=== PATIENT | female | born 1945 | race Caucasian/White ===

== ENCOUNTER → 2016-11-16 | Outpatient (CLI) | payer OTHER | LOC: BHFA 09:15 | PROVIDERS: ATTEND Internal Medicine | DX: I35.1 Nonrheumatic aortic (valve) insufficiency (principal); I34.0 Nonrheumatic mitral (valve) insufficiency; I36.1 Nonrheumatic tricuspid (valve) insufficiency; I25.10 Atherosclerotic heart disease of native coronary artery without angina pectoris ==

== ENCOUNTER → 2017-01-02 | Outpatient (CLI) | payer OTHER | LOC: FIMAGING 11:29 | DX: Z12.31 Encounter for screening mammogram for malignant neoplasm of breast (principal) | CPT/HCPCS: G0202 ==

== ENCOUNTER 2017-01-15 11:16 | Observation (INO) | payer OTHER ==
[2017-01-15] MEDS ORDERED: ACETAMINOPHEN 325 MG TAB PO PRN (14:01)
[2017-01-15] MEDS ORDERED: oxyCODONE IR 5 MG TAB PO PRN (14:01)
[2017-01-15] MEDS ORDERED: TEMAZEPAM 15 MG CAP PO PRN (14:01)
[2017-01-15] MEDS ORDERED: ONDANSETRON DISINTEGRATING 4 MG TAB PO PRN (14:01)
[2017-01-15] MEDS ORDERED: ONDANSETRON 4 MG/2 ML VIAL IVP PRN (14:01)
--- NOTE | 2017-01-15 14:22 | CPEKG ---
Heart Rate: 79 RR Interval: 759 P-R Interval: 204 QRSD Interval: 86 QT Interval: 372 QTC Interval: 427 P [place]: 40 QRS [place]: 55 T Wave [place]: 36 EKG Severity - BORDERLINE ECG - EKG Impression: SINUS RHYTHM EKG Impression: BORDERLINE R WAVE PROGRESSION, ANTERIOR LEADS Electronically Signed By: Lionel Stubbs 15-Jan-2017 20:47:08
[2017-01-15] MEDS ORDERED: NS 1,000 ML IV SCH (14:30)
--- NOTE | 2017-01-15 15:00 | GHP ---
[f rep st] HISTORY AND PHYSICAL DATE OF ADMISSION: 01/15/2017 CHIEF COMPLAINT: Fever. HISTORY OF PRESENT ILLNESS: This is a 71-year-old female, who has been seen by Dr. Hamilton over the past 2 days for a fever. She says that this started 6 days prior to presentation, associated with some left-sided flank pain. She has had intermittent fevers up to 102. She has been treating them with Tylenol. She then saw Dr. Hamilton yesterday, who ordered tests, including cell counts, which shows a white count of 10.7, with 84% neutrophils. Electrolytes, liver function tests, which were unremarkable. Urinalysis, which shows 50 to 182 whites, 3+ leuk esterase, as well as urine culture, growing a GNR non-lactose rock worker, as well as a GNR lactose rock worker. The non-lactose rock worker is greater than 100,000 CFUs per mL. She has no dysuria, no frequency. She occasionally has foul smelling urine, which she has not noted in the last week. She has a mild cough, which is slightly productive. She notes one episode of emesis, no headaches, no rash, no arthralgias. She has been placed on prednisone 2 weeks ago for some hearing loss, after seeing an ENT. She had one episode like this in 2013, when she was in [place]. She had empirically taken Cipro before having any cultures drawn and nothing was ever cultured. She does have a history of urinary tract infections, however, this does not feel like her previous. She grew e. coli that was resistant to Levaquin in 2013. PAST MEDICAL/SURGICAL HISTORY: 1. Hyperlipidemia. 2. Valvular heart disease, including aortic insufficiency, mitral and tricuspid regurg, followed by Dr. Jiménez. 3. Hypothyroid. 4. History of a TIA. MEDICATIONS: Please see medication reconciliation. ALLERGIES: None. FAMILY HISTORY: Her mother had multiple myeloma. Father had a stroke. SOCIAL HISTORY: She occasionally drinks wine. She does not smoke. She is and lives at home with her independently. REVIEW OF SYSTEMS: A 10-point review of systems is conducted and is negative, except per HPI. PHYSICAL EXAM: VITAL SIGNS: Currently afebrile, blood pressure 124/61, heart rate 86, saturating at 93% on room air. Breathing comfortably. GENERAL: The patient is a pleasant, tired appearing female, who is lying in bed. HEENT: Shows her to be normocephalic, atraumatic. She has no meningismus. CARDIOVASCULAR: Shows regular rate and rhythm. No murmurs, rubs, or gallops while she is lying on her back. SKIN: Shows no rash. : No G[place]. NEUROLOGIC: Shows her to be alert and oriented x3. She is moving all extremities. PSYCHIATRIC: Shows normal mood and affect. LABS: Labs from yesterday are reviewed as per HPI. DATA: 1. I reviewed her chart. 2. I personally viewed and interpreted her EKG, this shows sinus rhythm. She has slow R-wave progression. She has a Q-wave in lead 3. Otherwise, this is a nonischemic EKG. 3. I have ordered a chest x-ray. IMPRESSION AND PLAN: A 71-year-old female, who presents with: 1. SIRS with fever and leukocytosis: I suspect that this is likely due to urinary tract infection given positive culture and UA, though she does not have any real localizing symptoms. She had a previous e. coli UTI resistant to Levaquin. Unclear if she has had improvement on empiric Levaquin. I will put her on Rocephin for now and follow her urine culture. I have ordered blood cultures to be drawn again if she has a fever. I have ordered a chest x-ray, given her cough. If she does not improve on empiric Rocephin, we will broaden considerations, to include other infections, inflammatory disorders, or malignancies. At this point, I have no evidence for meningitis or endocarditis. I will also order an ESR and CRP. 2. Hypothyroid: Check TSH and continue Synthroid. 3. Valvular heart disease: Would consider endocarditis if her blood culture is positive. 4. History of a transient ischemic attack: Aspirin and statin. 5. Code status is do not resuscitate. 6. Venous thromboembolism risk is moderate, however, she is admitted under observation. If she stays for more than one midnight would institute pharmacologic prophylaxis. /[id number]/MODL MTDD
[2017-01-15 15:13] LABS: % IMMATURE GRANULYOCYTES 0.4 % (0.0-1.1); ABSOLUTE IMMATURE GRANULOCYTES 0.05 10^3/uL (0.00-0.10); ADD DIFF? NO; ADD MORPH? NO; ADD SCAN? NO; ATYPICAL LYMPHOCYTE FLAG 80 (0-99); FRAGMENT RBC FLAG 0 (0-99); HEMATOCRIT 37.6 % (38.0-47.0); HEMOGLOBIN 12.9 g/dL (12.6-16.3); LEFT SHIFT FLG 10 (0-99); LIPEMIA HEMOLYSIS FLAG 90 (0-99); MEAN CELL HEMOGLOBIN 30.9 pg (27.9-34.1); MEAN CELL HEMOGLOBIN CONCENTR. 34.3 g/dL (32.4-36.7); MEAN CELL VOLUME 90.2 fL (81.5-99.8); MEAN PLATELET VOLUME 10.7 fL (8.7-11.7); PLATELET CLUMPS FLAG 10 (0-99); PLATELET COUNT 174 10^3/uL (150-400); RED BLOOD CELL COUNT 4.17 10^6/uL (4.18-5.33); RED CELL DISTRIBUTION WIDTH 14.3 % (11.5-15.2)
[2017-01-15 15:19] LABS: INR 1.12 (0.83-1.16); PROTIME(PATIENT) 14.3 SEC (12.0-15.0)
[2017-01-15 15:35] LABS: ALANINE AMINOTRANSFERASE 36 IU/L (9-52); ALBUMIN 3.2 g/dL (3.5-5.0); ALKALINE PHOSPHATASE 109 IU/L (38-126); ANION GAP 8 mEq/L (8-16); ASPARTATE AMINOTRANSFERASE 27 IU/L (14-46); BILIRUBIN,TOTAL 0.7 mg/dL (0.1-1.4); CALCIUM 8.7 mg/dL (8.5-10.4); CARBON DIOXIDE 25 mEq/l (22-31); CHLORIDE 102 mEq/L (97-110); CREATININE 0.7 mg/dL (0.6-1.0); GLOMERULAR FILTRATION RATE > 60; GLUCOSE 88 mg/dL (70-100); POTASSIUM 4.3 mEq/L (3.5-5.2); SODIUM 135 mEq/L (134-144)
[2017-01-15 15:52] LABS: SEDIMENTATION RATE 41 MM/HR (0-30)
[2017-01-15 16:02] LABS: C-REACTIVE PROTEIN 327.4 mg/L (<10.0)
[2017-01-15] MEDS ORDERED: ASPIRIN 81 MG CHEWABLE TAB PO SCH (21:00)
[2017-01-15] MEDS ORDERED: ATORVASTATIN CALCIUM 20 MG TAB PO SCH (21:00)
[2017-01-16 02:50] VITALS: O2SAT 95
[2017-01-16 05:38] LABS: % IMMATURE GRANULYOCYTES 0.3 % (0.0-1.1); ABSOLUTE IMMATURE GRANULOCYTES 0.03 10^3/uL (0.00-0.10); ADD DIFF? NO; ADD MORPH? NO; ADD SCAN? YES; FRAGMENT RBC FLAG 0 (0-99); HEMATOCRIT 36.1 % (38.0-47.0); HEMOGLOBIN 12.2 g/dL (12.6-16.3); LEFT SHIFT FLG 10 (0-99); LIPEMIA HEMOLYSIS FLAG 90 (0-99); MEAN CELL HEMOGLOBIN CONCENTR. 33.8 g/dL (32.4-36.7); MEAN CELL VOLUME 91.6 fL (81.5-99.8); MEAN PLATELET VOLUME 10.9 fL (8.7-11.7); PLATELET CLUMPS FLAG 0 (0-99); PLATELET COUNT 171 10^3/uL (150-400); RED BLOOD CELL COUNT 3.94 10^6/uL (4.18-5.33); RED CELL DISTRIBUTION WIDTH 14.4 % (11.5-15.2)
[2017-01-16 05:52] LABS: ATYPICAL LYMPHOCYTE FLAG 180 (0-99)
[2017-01-16 05:56] LABS: ANION GAP 7 mEq/L (8-16); CALCIUM 8.4 mg/dL (8.5-10.4); CARBON DIOXIDE 23 mEq/l (22-31); CHLORIDE 109 mEq/L (97-110); CREATININE 0.6 mg/dL (0.6-1.0); GLOMERULAR FILTRATION RATE > 60; GLUCOSE 87 mg/dL (70-100); POTASSIUM 4.3 mEq/L (3.5-5.2); SODIUM 139 mEq/L (134-144)
[2017-01-16] MEDS ORDERED: LEVOTHYROXINE 50 MCG TAB PO SCH (06:00)
[2017-01-16 06:21] LABS: SCAN NEGATIVE
[2017-01-16 07:46] VITALS: RESP 16
[2017-01-16 11:12] VITALS: BP 105/60; PULSE 77; TEMP 98.4
--- NOTE | 2017-01-16 14:02 | GDS ---
[f rep st] DISCHARGE SUMMARY DISCHARGE DIAGNOSES: 1. Urinary tract infection. 2. Systemic inflammatory response syndrome. 3. Hypothyroidism. 4. History of valvular heart disease. HISTORY: This is a 71-year-old female who presented with fever. She was diagnosed with urinary tra ct infection at her PCP's office and was started on Levaquin. She, however, continued to have fever and came to the emergency department. HOSPITAL COURSE: The patient was admitted and started on ceftriaxone. A urine culture from PCP's o ice did grow out E coli that was resistant to Levaquin among several other antibiotics. It is sen sitive to cephalosporins. She is doing quite well, is feeling a lot better, and wants to go home. Will discharge her on 7 more days of Ceftin. FOLLOWUP INSTRUCTIONS: She is instructed to follow up with her primary care doctor as needed. /[id number]/MODL
== END 2017-01-16 13:28 | disposition home or self-care (01) ==
LOC: F3E 12:53
PROVIDERS: ADMIT Internal Medicine; ATTEND Internal Medicine
DX: N39.0 Urinary tract infection, site not specified (principal); E03.9 Hypothyroidism, unspecified; I08.0 Rheumatic disorders of both mitral and aortic valves; Z86.73 Personal history of transient ischemic attack (TIA), and cerebral infarction without residual deficits
CPT/HCPCS: 71020; 93005; G0378; J0696

== ENCOUNTER → 2017-08-20 | Outpatient (CLI) | payer OTHER | LOC: BHFA 11:30 | PROVIDERS: ATTEND Internal Medicine Cardiovascular Disease | DX: R06.02 Shortness of breath (principal); I51.9 Heart disease, unspecified ==

== ENCOUNTER → 2018-01-06 | Outpatient (CLI) | payer OTHER | LOC: FIMAGING 10:02 | PROVIDERS: ATTEND Internal Medicine | DX: Z12.31 Encounter for screening mammogram for malignant neoplasm of breast (principal) ==

== ENCOUNTER → 2018-01-13 | Outpatient (CLI) | payer OTHER | LOC: BMCIMAGING 10:07 | PROVIDERS: ATTEND Internal Medicine Critical Care Medicine | DX: R06.02 Shortness of breath (principal); I27.20 Pulmonary hypertension, unspecified ==

== ENCOUNTER → 2018-11-04 | Outpatient (CLI) | payer OTHER | LOC: BMCIMAGING 10:33 | PROVIDERS: ATTEND Internal Medicine Rheumatology | DX: M19.041 Primary osteoarthritis, right hand (principal); M19.042 Primary osteoarthritis, left hand; M18.0 Bilateral primary osteoarthritis of first carpometacarpal joints ==

== ENCOUNTER → 2019-01-28 | Outpatient (CLI) | payer OTHER | LOC: BMCIMAGING 16:09 | PROVIDERS: ATTEND Internal Medicine Geriatric Medicine | DX: I51.7 Cardiomegaly (principal); Z87.01 Personal history of pneumonia (recurrent) ==

== ENCOUNTER → 2019-01-29 | Outpatient (CLI) | payer OTHER | LOC: BHFA 10:45 | PROVIDERS: ATTEND Internal Medicine Cardiovascular Disease | DX: I27.20 Pulmonary hypertension, unspecified (principal); I25.10 Atherosclerotic heart disease of native coronary artery without angina pectoris; I38 Endocarditis, valve unspecified ==

== ENCOUNTER 2019-01-31 00:32 | Observation (INO) | payer OTHER ==
[2019-01-31] MEDS ORDERED: NS 500 ML IV ONE ×2 (00:43→01:50)
--- NOTE | 2019-01-31 00:43 | EDPHY ---
H & P Stated Complaint: Chest pain an dback pain-hx valve disease Time Seen by Provider: 01/31/19 00:43 HPI/ROS: HPI CHIEF COMPLAINT: Left-sided scapula pain. HISTORY OF PRESENT ILLNESS: Patient is a 73-year-old female, she tells me she has a history of pulmonary hypertension, valvular heart disease, hyperlipidemia , presents emergency room left-sided posterior scapula pain this started around 9:00 p.m.. Happened at rest. She does not recall any injury. It is persistent she describes as a achy sensation left posterior scapula. It is worse when she takes deep breath in. She denies anterior left-sided chest pain. She additionally reports to me that when she was working out this morning she noticed that she had some discomfort in her left posterior shoulder. Past Medical History: History of cardiac valvular disease, hyperlipidemia, pulmonary hypertension Past Surgical History: Denies recent surgery Social History: Denies daily use of drugs alcohol tobacco. Family History: Noncontributory Patient's life trainer: Dr. iJménez. ROS REVIEW OF SYSTEMS: 10 Systems were reviewed and negative with the exception of the elements mentioned in the history of present illness. Exam Constitutional triage nursing summary reviewed, vital signs reviewed, awake/ alert. Eyes normal conjunctivae and sclera, EOMI, PERRLA. HENT normal inspection, atraumatic, moist mucus membranes, no epistaxis, neck supple/ no meningismus, no raccoon eyes. Respiratory clear to auscultation bilaterally, normal breath sounds, no respiratory distress, no wheezing. Cardiovascular rate normal, regular rhythm, no murmur, no edema, distal pulses normal. Gastrointestinal soft, non-tender, no rebound, no guarding, normal bowel sounds, no distension, no pulsatile mass. Genitourinary no CVA tenderness. Musculoskeletal no midline vertebral tenderness, full range of motion, no calf swelling, no tenderness of extremities, no meningismus, good pulses, neurovascularly intact. Skin pink, warm, & dry, no rash, skin atraumatic. Neurologic awake, alert and oriented x 3, AAOx3, moves all 4 extremities equally, motor intact, sensory intact, CN II-XII intact, normal cerebellar, normal vision, normal speech. Psychiatric normal mood/affect. Heme/Lymph/Immune no lymphadenopathy. 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 Impression time of EKG 0046, sinus rhythm rate of 90, NH interval 263, Q-waves noted V1 V2 V3. When I compare this to her old EKG dated 01/15/2017 is very similar morphology. Troponin 0.02 CT angiogram pending due to positive D-dimer this set of left-sided posterior shoulder pleuritic pain. Patient updated about CT angiogram agrees for this. CT angiogram of the chest faxed me by direct Radiology Shows no pulmonary embolism Mild cardiomegaly. Long discussion with the patient 2:55 a.m. Has agreed to stay in the hospital overnight for further evaluation. This may be musculoskeletal left shoulder pain however cannot rule out anginal equivalent or left-sided chest pain shoulder pain. Plan for serial enzymes and admission to PCU. Patient agrees for this plan. Repeat troponin 0.00 Repeat EKG time 2:57 a.m., sinus rhythm rate of 81, prolong p.r.n. Wall, Q- waves in anterior leads V1 V2 V3 unchanged from previous EKG inferior leads show minimal ST elevation. This is very similar to patient's previous EKG dated 01/15/2017. Source: Patient - Personal History Current Tetanus Diphtheria and Acellular Pertussis (TDAP): Yes - Medical/Surgical History Hx Asthma: No Hx Chronic Respiratory Disease: No Hx Diabetes: No Hx Cardiac Disease: Yes Hx Renal Disease: No Hx Cirrhosis: No Hx Alcoholism: No Hx HIV/AIDS: No Hx Splenectomy or Spleen Trauma: No Other PMH: hyperlidema, heart valve disease, glacoma, hysterectomy L4-L5 L[place], TIA - Social History Smoking Status: Former smoker Constitutional: Initial Vital Signs Temperature (C) 37.1 C 01/31/19 00:35 Heart Rate 90 01/31/19 00:35 Respiratory Rate 16 01/31/19 00:35 Blood Pressure 147/75 H 01/31/19 00:35 O2 Sat (%) 92 01/31/19 00:35 O2 Delivery Mode Room Air Allergies/Adverse Reactions: No Known Allergies Allergy (Unverified 01/31/19 00:34) Home Medications: Medication Instructions Recorded Aspirin [Aspirin 81mg (*)] 81 mg PO HS 01/15/17 Atorvastatin Calcium [Lipitor 20 20 mg PO HS 01/15/17 mg (*)] Cholecalciferol Vit D3 [Vitamin D3 1,000 units PO DAILY 01/15/17 (*)] Herbals/Supplements -Info Only 1 ea PO DAILY 01/15/17 Levothyroxine [Synthroid 50 mcg 50 mcg PO DAILY 01/15/17 (*)] Cyanocobalamin [Vitamin B12 (*)] 1,000 mcg PO DAILY 01/31/19 Medical Decision Making - Diagnostics Imaging Results: Imaging Impressions Chest X-Ray 01/31/19 00:43 Impression: Negative portable chest. Shoulder X-Ray 01/31/19 00:50 Impression: Early degenerative changes, left shoulder, without acute injury identified. - Data Points Laboratory Results: Laboratory Results 01/31/19 00:52 01/31/19 00:52 Medications Given: Enoxaparin Sodium (Lovenox) 40 mg SC DAILY JESSIKA Stop: 07/30/19 08:59 Last Admin: 01/31/19 10:23 Dose: 40 mg Ketorolac Tromethamine (Toradol) 15 mg IVP Q6H JESSIKA Stop: 02/05/19 07:59 Last Admin: 01/31/19 15:58 Dose: Not Given Discontinued Medications Sodium Chloride (Ns) 500 mls @ 1,000 mls/hr IV EDNOW ONE PRN Reason: Protocol Stop: 01/31/19 01:12 Last Admin: 01/31/19 01:18 Dose: 500 mls Sodium Chloride (Ns) 500 mls @ 0 mls/hr IV ONCE ONE PRN Reason: Wide Open Stop: 01/31/19 01:51 Last Admin: 01/31/19 02:19 Dose: 500 mls Ketorolac Tromethamine (Toradol) 15 mg IVP EDNOW ONE Stop: 01/31/19 01:49 Last Admin: 01/31/19 02:18 Dose: 15 mg Point of Care Test Results: Chemistry 01/31/19 00:53 POC Troponin I 0.02 ng/mL ng/mL (0.00-0.08) Departure - Departure Disposition: [facility] Clinical Impression: Shoulder pain, left Qualifiers: Chronicity: acute Qualified Code(s): M25.512 - Pain in left shoulder Condition: Fair
[2019-01-31 00:57] LABS: PLATELET COUNT 274 10^3/uL (150-400)
[2019-01-31 01:05] LABS: INR 0.89 (0.83-1.16); PROTIME(PATIENT) 11.7 SEC (12.0-15.0)
[2019-01-31] MEDS ORDERED: IOPAMIDOL (ISOVUE 370) 100 ML BTL IV ONE (01:38)
[2019-01-31] MEDS ORDERED: KETOROLAC 15 MG/1 ML SDV IVP ONE (01:48)
[2019-01-31] MEDS ORDERED: ONDANSETRON DISINTEGRATING 4 MG TAB PO PRN (02:55)
[2019-01-31] MEDS ORDERED: ACETAMINOPHEN 325 MG TAB PO PRN (02:55)
[2019-01-31] MEDS ORDERED: ONDANSETRON 4 MG/2 ML VIAL IVP PRN (02:55)
--- NOTE | 2019-01-31 03:37 | PDGENHP ---
History and Physical - Chief Complaint L scapular pain - History of Present Illness 73 yo F w/ hx of valvular disease, TIA, and hypothyroid presents with L scapular pain. The patient first noted the pain on Saturday. Her PCP ordered a CXR but found no clear etiology. She felt better on but the pain returned Saturday around 9 PM. She describes 9/10 pain to her L shoulder blade. The pain is worsened by movement of deep inspiration. She denies chest, neck, or arm pain. She has had URI symptoms for the last week. At the time of my evaluation she is pain free after Toradol. Her initial evaluation in the ED is negative. She is being admitted for observation. Case discussed with ED physician Dr. Martins; record reviewed and summarized above. History Information - Allergies/Home Medication List Allergies/Adverse Reactions: No Known Allergies Allergy (Unverified 01/31/19 00:34) Home Medications: Aspirin [Aspirin 81mg (*)] 81 mg PO HS 01/15/17 [Last Taken 01/14/17] Atorvastatin Calcium [Lipitor 20 mg (*)] 20 mg PO HS 01/15/17 [Last Taken ] Cholecalciferol Vit D3 [Vitamin D3 (*)] 1,000 units PO DAILY 01/15/17 [Last Taken Unknown] Herbals/Supplements -Info Only 1 ea PO DAILY 01/15/17 [Last Taken Unknown] Levothyroxine [Synthroid 50 mcg (*)] 50 mcg PO DAILY06 01/15/17 [Last Taken 01/28] Tylenol 01/31/19 [Last Taken Unknown] I have personally reviewed and updated: family history, medical history - Past Medical History TIA Additional medical history: Hypothyroid. Valvular disease (AI, MR, TR) - Surgical History Reports: hysterectomy, spinal surgery - Family History Positive for: stroke - Social History Smoking Status: Former smoker Review of Systems Review of Systems: ROS: 10pt was reviewed & negative except for what was stated in HPI & below Physical Exam Physical Exam: Temp Pulse Resp BP Pulse Ox 36.9 C 82 18 108/60 92 01/31/19 03:28 01/31/19 03:28 01/31/19 03:28 01/31/19 03:28 01/31/19 03:28 Constitutional: appears nourished, uncomfortable Eyes: PERRL, EOMI Ears, Nose, Mouth, Throat: moist mucous membranes, no oral mucosal ulcers Cardiovascular: regular rate and rhythym, systolic murmur, diastolic murmur Respiratory: no respiratory distress, clear to auscultation Gastrointestinal: normoactive bowel sounds, soft, non-tender abdomen Skin: warm, normal color Musculoskeletal: full muscle strength, no muscle tenderness Neurologic: AAOx3, CN II-XII Intact Psychiatric: interacting appropriately, not anxious Lab Data & Imaging Review 01/31/19 00:52 01/31/19 00:52 WBC 10.24 10^3/uL (3.80-9.50) H 01/31/19 00:52 RBC 4.50 10^6/uL (4.18-5.33) 01/31/19 00:52 Hgb 13.7 g/dL (12.6-16.3) 01/31/19 00:52 Hct 41.8 % (38.0-47.0) 01/31/19 00:52 MCV 92.9 fL (81.5-99.8) 01/31/19 00:52 MCH 30.4 pg (27.9-34.1) 01/31/19 00:52 MCHC 32.8 g/dL (32.4-36.7) 01/31/19 00:52 RDW 13.4 % (11.5-15.2) 01/31/19 00:52 Plt Count 274 10^3/uL (150-400) 01/31/19 00:52 MPV 10.3 fL (8.7-11.7) 01/31/19 00:52 Neut % (Auto) 66.5 % (39.3-74.2) 01/31/19 00:52 Lymph % (Auto) 26.1 % (15.0-45.0) 01/31/19 00:52 [place] % (Auto) 5.4 % (4.5-13.0) 01/31/19 00:52 Eos % (Auto) 1.1 % (0.6-7.6) 01/31/19 00:52 Baso % (Auto) 0.6 % (0.3-1.7) 01/31/19 00:52 Nucleat RBC Rel Count 0.0 % (0.0-0.2) 01/31/19 00:52 Absolute Neuts (auto) 6.82 10^3/uL (1.70-6.50) H 01/31/19 00:52 Absolute Lymphs (auto) 2.67 10^3/uL (1.00-3.00) 01/31/19 00:52 Absolute Monos (auto) 0.55 10^3/uL (0.30-0.80) 01/31/19 00:52 Absolute Eos (auto) 0.11 10^3/uL (0.03-0.40) 01/31/19 00:52 Absolute Basos (auto) 0.06 10^3/uL (0.02-0.10) 01/31/19 00:52 Absolute Nucleated RBC 0.00 10^3/uL (0-0.01) 01/31/19 00:52 Immature Gran % 0.3 % (0.0-1.1) 01/31/19 00:52 Immature Gran # 0.03 10^3/uL (0.00-0.10) 01/31/19 00:52 PT 11.7 SEC (12.0-15.0) L 01/31/19 00:52 INR 0.89 (0.83-1.16) 01/31/19 00:52 APTT 30.7 SEC (23.0-38.0) 01/31/19 00:52 D-Dimer 1.35 ug/mLFEU (0.00-0.50) H 01/31/19 00:52 Sodium 141 mEq/L (135-145) 01/31/19 00:52 Potassium 3.9 mEq/L (3.5-5.2) 01/31/19 00:52 Chloride 104 mEq/L (97-110) 01/31/19 00:52 Carbon Dioxide 25 mEq/l (22-31) 01/31/19 00:52 Anion Gap 12 mEq/L (6-14) 01/31/19 00:52 BUN 13 mg/dL (7-23) 01/31/19 00:52 Creatinine 0.5 mg/dL (0.6-1.0) L 01/31/19 00:52 Estimated GFR > 60 01/31/19 00:52 Glucose 103 mg/dL (70-100) H 01/31/19 00:52 Calcium 9.3 mg/dL (8.5-10.4) 01/31/19 00:52 Magnesium 2.1 mg/dL (1.6-2.3) 01/31/19 00:52 Total Bilirubin 0.2 mg/dL (0.1-1.4) 01/31/19 00:52 Conjugated Bilirubin 0.2 mg/dL (0.0-0.5) 01/31/19 00:52 Unconjugated Bilirubin 0.0 mg/dL (0.0-1.1) 01/31/19 00:52 AST 31 IU/L (14-46) 01/31/19 00:52 ALT 26 IU/L (9-52) 01/31/19 00:52 Alkaline Phosphatase 73 IU/L (38-126) 01/31/19 00:52 POC Troponin I 0.00 ng/mL (0.00-0.08) 01/31/19 03:07 NT-Pro-B Natriuret Pep 178 pg/mL (0-450) 01/31/19 00:52 Total Protein 7.0 g/dL (6.3-8.2) 01/31/19 00:52 Albumin 4.0 g/dL (3.5-5.0) 01/31/19 00:52 Lipase 164 IU/L (23-300) 01/31/19 00:52 Visualized and Interpreted EKG results: Yes EKG Interpretation: Positive for: normal sinsus rhythm EKG additional interpertation: Stable compared to 2017 Assessment & Plan Assessment: 73 yo F w/ hx of valvular disease, TIA, and hypothyroid presents with L scapular pain. Plan: 1. L scapular pain - Unclear etiology; MSK vs. pleurisy from viral infection seem most likely. CTA negative for PE, pneumothorax, or aneurysm. Atypical angina seems unlikely; ECG stable from 2017 comparison and troponin negative. HEART score of 3 denoting low risk. - Admit for observation - Monitor on telemetry, trend cardiac enzymes - Treat pain with NSAIDs for now - I do not feel further cardiac testing is indicated at this time, reconsider this if any results return abnormal 2. Hx valvular disease - Reported history of AI, MR, and TR. She is followed by Dr. Loni Jiménez. - Consider TTE if worsening or persistent symptoms 3. Hypothyroid - Continue LTX 4. Hx TIA - Continue ASA, statin Diet - Regular Code - Full Ppx - LMWH Dispo - Admit under observation status
[2019-01-31 07:58] LABS: PLATELET COUNT 226 10^3/uL (150-400)
[2019-01-31] MEDS: ENOXAPARIN 40 MG/0.4 ML SYR SC SCH (10:23)
[2019-01-31] MEDS: KETOROLAC 15 MG/1 ML SDV IVP SCH ×2 (10:24→15:58)
[2019-01-31] MEDS ORDERED: REGADENOSON 0.4 MG/5 ML SYR IVP ONE (12:47)
--- NOTE | 2019-01-31 13:25 | PDCARST ---
CAR Stress Test Results Type of Stress Test: Lexiscan stress test Indication: cp Description of Procedure: After informed consent was obtained, pt was established to ECG, blood pressure, HR and oximetry monitoring. STRESS EKG AND HEMODYNAMIC DATA. Resting heart rate: 81 BPM. Resting ECG: SR. Resting blood pressure: 143/66 mmHg. O2 saturation at rest: 90%. Peak heart rate: 81 BPM. Peak blood pressure: 132/71 mmHg. Arrhythmias: none. Symptoms: The patient experienced no typical symptoms of angina during stress or recovery. Stress/Infusion ECG: No change in rhythm with no significant ST/T wave changes. Stress/infusion O2 saturation: 93% Impression: Uneventful lexiscan infusion. Conclusion: Await nuclear images.
--- NOTE | 2019-01-31 15:27 | HOSPPROG ---
Hospitalist Progress Note Assessment/Plan: 73 yo F w/ hx of valvular disease, TIA, and hypothyroid presents with L scapular pain. Plan: 1. L scapular pain - Unclear etiology; MSK vs. pleurisy from viral infection vs. cardiac. CTA negative for PE, pneumothorax, or aneurysm. Atypical angina seems unlikely; ECG stable from 2017 comparison and troponin negative. - Troponins negative overnight - MPS ordered this AM which showed decreased uptake in lateral, apex, resting images to be performed tomorrow to further assess 2. Hx valvular disease - Reported history of AI, MR, and TR. She is followed by Dr. Loni Jiménez. 3. Hypothyroid - Continue LTX 4. Hx TIA - Continue ASA, statin Diet - Regular Code - Full Ppx - LMWH Dispo - Pending clinical course Subjective: Pt reports continued L shoulder pain this AM Objective: Vital Signs Temp Pulse Resp BP Pulse Ox 36.8 C 64 18 129/59 H 83 L 01/31/19 11:02 01/31/19 11:02 01/31/19 11:02 01/31/19 11:02 01/31/19 13:40 Laboratory Results 01/31/19 07:45 01/31/19 07:45 01/30/19 01/31/19 02/01/19 05:59 05:59 05:59 Intake Total 1150 Output Total 600 Balance 550 PT 11.7 SEC (12.0-15.0) L 01/31/19 00:52 INR 0.89 (0.83-1.16) 01/31/19 00:52 - Physical Exam Constitutional: no apparent distress Eyes: PERRL Ears, Nose, Mouth, Throat: moist mucous membranes Cardiovascular: regular rate and rhythym Respiratory: no respiratory distress Skin: warm Musculoskeletal: full muscle strength, pain with ROM Neurologic: AAOx3 Psychiatric: interacting appropriately ICD10 Worksheet Patient Problems: Problems Problem Status Onset Shoulder pain, left Acute
--- NOTE | 2019-01-31 16:09 | ASMTCMCOM ---
CM Note CM Note Notes: Pt is a 73 yo F presents with Left sided shoulder pain. Had stress test today that was positive. Will have more tests tomorrow. Discharge plans TBD at this time. CM to follow. Plan: TBD Date Signed: 01/31/2019 04:09 PM Electronically Signed By:RICCI Leyva
[2019-02-01] MEDS: KETOROLAC 15 MG/1 ML SDV IVP SCH ×4 (01:48→19:00)
[2019-02-01] MEDS ORDERED: LIDOCAINE 1% 300 MG/30 ML SDV ONE (11:45)
[2019-02-01] MEDS ORDERED: fentaNYL 100 MCG/2 ML INJ ONE (11:45)
[2019-02-01] MEDS ORDERED: MIDAZOLAM 2 MG/2 ML VIAL ONE (11:45)
[2019-02-01] MEDS ORDERED: IOPAMIDOL (ISOVUE-370) 150 ML BTL IV ONE (11:46)
[2019-02-01] MEDS: ENOXAPARIN 40 MG/0.4 ML SYR SC SCH (13:55)
--- NOTE | 2019-02-01 14:27 | PDDCSUM ---
Discharge Summary Discharge Summary: Date of Admission: 01/30/2019 Date of Discharge: 02/01/2019 Consults: Cardiology Procedures: MPS, LHC, Shoulder XR, CXR, CTA Chest Followup: PCP, Cardiology Hospital Course Problem List: 73 yo F w/ hx of valvular disease, TIA, and hypothyroid presents with L scapular pain. 1. L scapular pain - Unclear etiology; MSK vs. pleurisy from viral infection vs. cardiac. CTA negative for PE, pneumothorax, or aneurysm.; ECG stable from 2017 comparison and troponin negative. - Troponins negative overnight - MPS performed showed decreased uptake in LV free wall, s/p LHC by Dr. Jiménez which was negative for significant obstruction requiring intervention - Recommended continue PRN Tylenol, Ibuprofen 2. Hx valvular disease - Reported history of AI, MR, and TR. She is followed by Dr. Loni Jiménez. 3. Hypothyroid - Continue LTX 4. Hx TIA - Continue ASA, statin Time spent on discharge was >35 minutes with >50% if time spent on patient education and counseling.
[2019-02-01 15:10] VITALS: BP 148/44
--- NOTE | 2019-02-01 15:35 | ASMTDCNOTE ---
Case Management Discharge Discharge Order Complete? Answers: Yes Patient to Obtain Answers: via Family Medications Transportation Arranged Answers: Family/Friends Discharge Comments Notes: Pt is being discharged independently. WIll follow up with PCP and cardiology. No other CM needs identified at this time. Family to transport. Date Signed: 02/01/2019 03:34 PM Electronically Signed By:RICCI Leyva
--- NOTE | 2019-02-01 15:48 | ASMTLACE ---
LACE Length of stay for Answers: 1 day current admission Acuity / Level of Answers: No Care: Did the patient have an inpatient admission? Comorbidities - select Answers: Cerebrovascular disease all that apply (CVA, TIA, aneurysms, vasc ular dementia) Other Notes: TIA, Hyperthyroid # of Emergency department Answers: 0 visits in the last 6 months Score: 3 Date Signed: 02/01/2019 03:47 PM Electronically Signed By:RICCI Leyva
--- NOTE | 2019-02-01 20:52 | GCON ---
[f rep st] CONSULTATION CARDIOLOGY CONSULTATION PRIMARY GUIDE ALPINE: Loni Jiménez MD REASON FOR CONSULTATION: We were asked by Dr. Clifford Martinez to evaluate the patient for her chest pain and abnormal nuclear stress test. HISTORY OF PRESENT ILLNESS: The patient is a 73-year-old female with a past medical history signific ant for CAD with known coronary artery calcifications, TIA, mild carotid disease, pulmonary hypertens ion, hypothyroidism, moderate aortic regurgitation, moderate mitral regurgitation, moderate to severe tricuspid regurgitation. She also has pulmonary hypertension with a pulmonary artery systolic press ure of 65 mmHg. She reports a recent URI in the past 2 weeks. With her coughing, she feels like she has strained her upper back region. She had a chest x-ray due to this discomfort in her back this past week. She wa s not noted to have any pneumonia. On that Saturday, she had this left scapular "grabbing" discomfo rt present at rest. Then the next day she felt well. On Saturday she was exercising with some light w eights. With a 6 pound weight on her left arm she noted some weakness in that arm. She denies any w orsening dyspnea with exertion. This was while she was exercising on her [employer] bike. On the of her presentation, she had severe discomfort in her left scapular region. This was made worse b y deep breaths as well as movement. She presented to the emergency department and had negative EKG a nd enzymes. She was given Toradol with relief to her discomfort. Due to her clinical history, she p roceeded to stress testing and this has shown an inferolateral ischemia. Currently, she is feeling well. She may have had some mild left scapular pain last night, relieved w ith another dose of Toradol. She denies any exertional chest pain, palpitations, presyncope, syncope . PAST MEDICAL HISTORY: 1. CAD. 2. Carotid disease. 3. History of CVA. 4. History of pulmonary hypertension. 5. History of valvular heart disease. 6. History of hypothyroidism. SURGERIES: 1. Hysterectomy. 2. Lumbar spine surgery. FAMILY HISTORY: Father had CVA. Sister had atrial fibrillation. SOCIAL HISTORY: She is and her , Darryl, is present in the room. She is a former tobac co user, having quit in 1969. She has mild to moderate alcohol intake. OUTPATIENT MEDICATIONS: Reviewed. These are listed as vitamin B12, vitamin D3, Lipitor, aspirin, an d levothyroxine. ALLERGIES: No known drug allergies. REVIEW OF SYSTEMS: As per HPI. A complete 10-point review of systems was obtained and is negative e xcept for what is dictated. PHYSICAL EXAMINATION: VITAL SIGNS: BP of 138/49, heart rate 60, respirations 14, O2 saturation 91% on 2 L/minute. GENERAL: She is a very pleasant female in no apparent distress. HEENT: Normocephal ic, atraumatic. Eyes are without scleral icterus. HEART: Regular rate and rhythm. She has no vanegas tid bruit. LUNGS: Clear to auscultation. ABDOMEN: Soft. : No Geronimo. SKIN: Warm and dry. Sh e has 1+ PT and DP pulses bilaterally. PSYCH: Normal mood and affect. NEURO: No focal deficits de tected. LABORATORY DATA: CBC with WBC 7.38, hemoglobin 11.2, hematocrit 34.5, platelet count 226. BMP with sodium 141, potassium 4.8, chloride 110, CO2 27, BUN 13, creatinine 0.6, glucose of 91. Troponins ar e negative. A 12-lead ECG personally interpreted reveals sinus rhythm with a first-degree AV block, slow R-wave p rogression. We reviewed the patient's nuclear stress test with Dr. Camacho. Care was discussed with Dr. Clifford Martinez. IMPRESSION AND PLAN: The patient is a 73-year-old female with multiple cardiac risk factors. She madrid s now had an abnormal MPI. We reviewed options, and patient is agreeable to left heart catheterizati on for further evaluation. Risks, benefits, and alternatives reviewed with her. /[id number]/MODL
--- NOTE | 2019-02-01 23:27 | CPIP ---
[f rep st] INVASIVE CARDIAC PROCEDURE DATE OF PROCEDURE: 02/01/2019 PROCEDURE: 1. Coronary angiography. 2. Left ventriculography. INDICATION: 1. Chest pain syndrome concerning for an acute coronary syndrome. 2. Intermediate grade nuclear stress test suggestive of lateral ischemia. ACCESS: Patient was prepped and draped in sterile fashion. 1% lidocaine was used to anesthetize the right inguinal region. A 6-Haitian introducer sheath was placed selectively into the right common fe moral artery via modified Seldinger technique. CORONARY ANGIOGRAPHY: A 6-Haitian JL4 was advanced to the left main coronary artery and images obtain ed. The left main coronary artery bifurcated into an LAD and circumflex coronary arteries. The left main coronary artery appeared normal. The left anterior descending coronary artery had a single dis crete 20% stenosis in the proximal vessel. The left anterior descending coronary artery gave rise to 2 prominent diagonal branches, as well as several smaller diagonal branches. The diagonal branches were free of any significant disease. Circumflex coronary artery was nondominant. Circumflex nayak ry artery had a discrete 20% stenosis in the mid vessel. A 6-Haitian JR4 was advanced to the right co ronary artery and images obtained. The right coronary artery is dominant. The right coronary artery appeared normal. LEFT VENTRICULOGRAPHY: A 6-Haitian pigtail catheter was advanced in the left ventricle and images obt ained. Left ventricle is normal size and normal systolic function, estimated ejection fraction 65%. COMPLICATIONS: None. CONCLUSIONS: 1. Mild coronary artery disease without flow limitation. 2. Normal left ventricular size and systolic function. 3. Plan is for medical management. /[id number]/MODL
[2019-02-02] MEDS ORDERED: DIAZEPAM 5 MG TAB PO ONE (06:00)
[2019-02-02] MEDS ORDERED: ASPIRIN EC 325 MG TAB PO ONE (06:00)
[2019-02-02] MEDS ORDERED: FAMOTIDINE 20 MG TAB PO ONE (06:00)
[2019-02-02] MEDS ORDERED: diphenhydrAMINE 25 MG CAP PO ONE (06:00)
== END 2019-02-01 17:10 | disposition home or self-care (01) ==
LOC: F2W 03:50
PROVIDERS: ADMIT Student in an Organized Health Care Education/Training Program; ATTEND Internal Medicine
PROC: B2111ZZ Fluoroscopy of Multiple Coronary Arteries using Low Osmolar Contrast (ICD-10-PCS; principal; 2019-01-31)
PROC: 4A023N7 Measurement of Cardiac Sampling and Pressure, Left Heart, Percutaneous Approach (ICD-10-PCS; principal; 2019-01-31)
PROC: B2151ZZ Fluoroscopy of Left Heart using Low Osmolar Contrast (ICD-10-PCS; principal; 2019-01-31)
DX: M25.512 Pain in left shoulder (principal); R07.89 Other chest pain; I08.0 Rheumatic disorders of both mitral and aortic valves; E03.9 Hypothyroidism, unspecified; Z86.73 Personal history of transient ischemic attack (TIA), and cerebral infarction without residual deficits; I27.20 Pulmonary hypertension, unspecified; Z82.49 Family history of ischemic heart disease and other diseases of the circulatory system; E86.9 Volume depletion, unspecified
CPT/HCPCS: 71045; 71275; 73030; 78452; 93017; 93458; A9500; C1760; G0378; J1644; J1650; J1885; J2250; J2785; J3010; Q9967; 84484-ER; 96374

== ENCOUNTER → 2019-03-04 | Outpatient (CLI) | payer OTHER | LOC: FIMAGING 12:07 | PROVIDERS: ATTEND Internal Medicine | DX: Z12.31 Encounter for screening mammogram for malignant neoplasm of breast (principal); Z80.3 Family history of malignant neoplasm of breast ==